=== PATIENT | male | born 1960 | race Caucasian/White ===

== ENCOUNTER → 2018-09-18 | Day surgery (SDC) | payer OTHER | LOC: MSO 07:14 | DX: Z12.11 Encounter for screening for malignant neoplasm of colon (principal); Z98.52 Vasectomy status | CPT/HCPCS: 00812; J2704; J7120 ==

== ENCOUNTER → 2019-08-16 | Outpatient (CLI) | payer OTHER | LOC: RAD 08:00 | DX: R10.9 Unspecified abdominal pain (principal) ==

== ENCOUNTER → 2022-01-06 | Day surgery (SDC) | payer BC | LOC: MSO 09:06 | DX: H25.11 Age-related nuclear cataract, right eye (principal) | CPT/HCPCS: 00142; J0171; J2250; V2632 ==